=== PATIENT | female | born 1960 | race Caucasian/White ===

== ENCOUNTER 2024-07-20 08:00 | Day surgery (SDC) | payer BC ==
[~2024-07-20 08:00] MED LIST: Sodium Chloride 0.9% 10 ML Syringe FLUSH PRN
[2024-07-20] MEDS ORDERED: Midazolam 1 MG/ML 2 ML SDV IV ONE (08:01)
[2024-07-20] MEDS ORDERED: fentaNYL 100 MCG/2 ML SDV IV ONE (08:01)
[2024-07-20] MEDS: Lactated Ringers 1,000 ML IV PRN (08:39)
[2024-07-20] MEDS: acetaZOLAMIDE 500 MG Cap.ER PO ONE (10:30)
[2024-07-20 14:49] VITALS: BP 136/65; PULSE 57
== END 2024-07-20 11:10 | disposition home or self-care (01) ==
LOC: FB.SDS 08:00
PROVIDERS: ATTEND Ophthalmology
DX: H25.813 Combined forms of age-related cataract, bilateral (principal); H04.123 Dry eye syndrome of bilateral lacrimal glands; H52.03 Hypermetropia, bilateral; I10 Essential (primary) hypertension; E78.00 Pure hypercholesterolemia, unspecified; K21.9 Gastro-esophageal reflux disease without esophagitis; Z79.899 Other long term (current) drug therapy; Z88.2 Allergy status to sulfonamides; Z88.1 Allergy status to other antibiotic agents; Z87.891 Personal history of nicotine dependence
CPT/HCPCS: A9270-GY; J2250; J3010; J7120; V2632

== ENCOUNTER → 2024-08-04 | Day surgery (SDC) | payer BC ==
[~2024-08-04] MED LIST changes: +Lidocaine 2% 5 ML SDV INJECT ONE; +Propofol 200 MG/20 ML SDV IV ONE
[2024-08-04] MEDS: Lactated Ringers 1,000 ML IV SCH (08:02)
[2024-08-04] MEDS: Simethicone Drops 40 MG/0.6 ML 30 ML Bottle ONE (08:23)
[2024-08-04 09:46] VITALS: BP 160/82; PULSE 56
== END ==
LOC: FB.SDS 06:54
PROVIDERS: ATTEND Surgery
DX: K59.09 Other constipation (principal); K21.9 Gastro-esophageal reflux disease without esophagitis; E66.9 Obesity, unspecified; Z79.899 Other long term (current) drug therapy; Z79.82 Long term (current) use of aspirin; Z88.2 Allergy status to sulfonamides; Z88.8 Allergy status to other drugs, medicaments and biological substances; Z87.891 Personal history of nicotine dependence; Z68.32 Body mass index [BMI] 32.0-32.9, adult
CPT/HCPCS: 00811; A9270-GY; J2704; J7120